=== PATIENT | male | born 2000 | race Hispanic/Latino ===

== ENCOUNTER → 2021-04-28 | Emergency (ER) | payer BC, MEDICAID ==
[~2021-04-28] VITALS: Ht 172.7 cm; Wt 77.6 kg
[~2021-04-28] MED LIST: CEPHALEXIN 500 MG CAPSULE PO SCH; CYCL10TA7 PO; HYDROCODONE/ACETAMINOPHEN 10/325 MG TAB ONE; HYDROCODONE/ACETAMINOPHEN 10/325 MG TAB PO ONE; MELO7.5T12 PO; TETANUS/DIPHTHERIA TOXOID [ADULT] 0.5 ML VIAL IM ONE; no medications
[2021-04-28 23:37] VITALS: BP 135/73
== END | disposition home or self-care (01) ==
LOC: EDH 21:47
DX: S90.31XA Contusion of right foot, initial encounter (principal); S97.81XA Crushing injury of right foot, initial encounter; Z79.899 Other long term (current) drug therapy; W20.8XXA Other cause of strike by thrown, projected or falling object, initial encounter; Y93.89 Activity, other specified; Y92.89 Other specified places as the place of occurrence of the external cause; Y99.8 Other external cause status
CPT/HCPCS: 73630